=== PATIENT | male | born 1940 | race Caucasian/White ===

== ENCOUNTER 2017-09-22 12:31 | Inpatient (IN) ==
[2017-09-22] MEDS ORDERED: DEXTROSE 50% 25 GM/50 ML VIAL IV PRN (12:40)
[2017-09-22] MEDS ORDERED: ACETAMINOPHEN 325 MG TABLET PO PRN (12:40)
[2017-09-22] MEDS ORDERED: GLUCAGON 1 MG VIAL IM PRN (12:40)
[2017-09-22 14:08] LABS: ABG Base Excess -1.9 MMOL/L (-2.5-2.5); ABG HCO3 21.6 MMOL/L (20-26); ABG Oxygen Saturation 96.6 % (95-100); ABG PCO2 32.6 MM HG (35-48); ABG PH 7.439 (7.35-7.45); ABG TCO2 22.6 MMOL/L (23-27); Allen Test Positive; Pt O2 Delivery Device Room Air
[2017-09-22] MEDS: ALBUTEROL/IPRATROPIUM 3 ML NEB RESP TX SCH ×2 (14:09→19:34)
[2017-09-22 14:13] LABS: Basophils % 0.3 % (0.0-0.8); Eosinophils % 0.4 % (0.00-10.9); Hematocrit 34.4 VOL% (42.0-52.0); Hemoglobin 11.6 GM/DL (14.0-18.0); Immature Granulocytes % 0.3 %; Immature Granulocytes Absolute 0.02 #; Lymphocytes # 1.6 10*3/uL (1.4-4.0); Lymphocytes % 22.1 % (21.2-54.2); Mean Corpuscular HGB Conc 33.7 GM/DL (32-36); Mean Corpuscular Hemoglobin 30 PG (27-34); Mean Corpuscular Volume 87.8 FL (87-102); Monocytes # 0.7 10*3/uL (0.11-0.8); Monocytes % 8.8 % (1.7-12.7); Neutrophils # 5.1 10*3/uL (1.4-7.4); Neutrophils % 68.1 % (38.7-73.9); Platelet Count 166 T/CUMM (130-400); Red Blood Count 3.92 MC/CUMM (3.8-5.5); Red Cell Distribution Width 14.1 % (9.3-17.3); White Blood Count 7.4 T/CUMM (4-12)
[2017-09-22] MEDS: SODIUM CHLORIDE 0.9% 1,000 ML IV SCH (14:25)
[2017-09-22] MEDS: DIGOXIN 0.5 MG/2 ML AMP IV SCH ×2 (14:36→18:48)
[2017-09-22 14:48] LABS: Calcium 9.2 MG/DL (8.5-10.1); Osmolality,Calculated 278.5 MOS/KG (273-304); Potassium 4.2 MMOL/L (3.5-5.1)
[2017-09-22] MEDS: INSULIN REGULAR 100 UNIT/ML SUBCUT SCH ×2 (17:52→20:20)
[2017-09-22] MEDS: DABIGATRAN 150 MG CAPSULE PO SCH (20:20)
[2017-09-22] MEDS: TAMSULOSIN 0.4 MG CAPSULE PO SCH (20:21)
[2017-09-23] MEDS: ALBUTEROL/IPRATROPIUM 3 ML NEB RESP TX SCH ×4 (00:07→20:13)
[2017-09-23] MEDS: DIGOXIN 0.5 MG/2 ML AMP IV SCH ×2 (01:05→06:47)
[2017-09-23 01:25] LABS: Apearance,Urine CLEAR (Clear); Bilirubin,Urine Negative (Negative); Blood, Urine Negative (Negative); Glucose,Urine (UA) Negative (Negative); Ketones,Urine 5 mg/dL (Negative); Nitrite,Urine Negative (Negative); Protein,Urine Negative; RBC,Urine 1 /HPF (0-4); Urine Color Straw (Yellow); Urine Specific Gravity 1.004 (1.001-1.035); Urine Urobilinogen < 2.0 EU/DL (0.2-1.0)
[2017-09-23 05:43] LABS: Basophils % 0.3 % (0.0-0.8); Eosinophils % 0.5 % (0.00-10.9); Hematocrit 34.8 VOL% (42.0-52.0); Hemoglobin 11.3 GM/DL (14.0-18.0); Immature Granulocytes % 0.3 %; Immature Granulocytes Absolute 0.02 #; Lymphocytes # 1.7 10*3/uL (1.4-4.0); Lymphocytes % 27.8 % (21.2-54.2); Mean Corpuscular HGB Conc 32.5 GM/DL (32-36); Mean Corpuscular Hemoglobin 30 PG (27-34); Mean Corpuscular Volume 90.9 FL (87-102); Mean Platelet Volume 10.8 FL (9.6-12.0); Monocytes # 0.6 10*3/uL (0.11-0.8); Monocytes % 9.4 % (1.7-12.7); Neutrophils # 3.8 10*3/uL (1.4-7.4); Neutrophils % 61.7 % (38.7-73.9); Platelet Count 148 T/CUMM (130-400); Red Blood Count 3.83 MC/CUMM (3.8-5.5); Red Cell Distribution Width 13.9 % (9.3-17.3); White Blood Count 6.2 T/CUMM (4-12)
[2017-09-23 06:03] LABS: Calcium 8.7 MG/DL (8.5-10.1); Osmolality,Calculated 281.1 MOS/KG (273-304); Potassium 4.3 MMOL/L (3.5-5.1)
[2017-09-23] MEDS: SODIUM CHLORIDE 0.9% 1,000 ML IV SCH (06:12)
[2017-09-23] MEDS: INSULIN REGULAR 100 UNIT/ML SUBCUT SCH ×4 (08:39→20:05)
[2017-09-23] MEDS: PANTOPRAZOLE 40 MG TABLET PO SCH (08:43)
[2017-09-23] MEDS: SERTRALINE 50 MG TABLET PO SCH (08:43)
[2017-09-23] MEDS: DABIGATRAN 150 MG CAPSULE PO SCH ×2 (08:43→20:55)
[2017-09-23] MEDS: ALUMINUM/MAGNES/SIMETH MAX STR 30 ML UDCUP PO PRN (18:04)
[2017-09-23] MEDS: TAMSULOSIN 0.4 MG CAPSULE PO SCH (20:55)
[2017-09-23] MEDS: clonazePAM 0.5 MG TABLET PO PRN (20:59)
[2017-09-24] MEDS: ALBUTEROL/IPRATROPIUM 3 ML NEB RESP TX SCH ×4 (01:52→20:05)
[2017-09-24] MEDS: SODIUM CHLORIDE 0.9% 1,000 ML IV SCH (03:40)
[2017-09-24 03:55] LABS: Basophils % 0.1 % (0.0-0.8); Eosinophils % 0.4 % (0.00-10.9); Hematocrit 35.8 VOL% (42.0-52.0); Hemoglobin 11.8 GM/DL (14.0-18.0); Immature Granulocytes % 0.1 %; Immature Granulocytes Absolute 0.01 #; Lymphocytes % 25.5 % (21.2-54.2); Mean Corpuscular Hemoglobin 29 PG (27-34); Mean Corpuscular Volume 88.2 FL (87-102); Mean Platelet Volume 10.4 FL (9.6-12.0); Monocytes # 0.7 10*3/uL (0.11-0.8); Monocytes % 8.9 % (1.7-12.7); Platelet Count 153 T/CUMM (130-400); Red Blood Count 4.06 MC/CUMM (3.8-5.5); Red Cell Distribution Width 14.1 % (9.3-17.3); White Blood Count 7.7 T/CUMM (4-12)
[2017-09-24 04:08] LABS: Apearance,Urine CLEAR (Clear); Bilirubin,Urine Negative (Negative); Blood, Urine Small mg/dL (Negative); Glucose,Urine (UA) Negative (Negative); Ketones,Urine 20 mg/dL (Negative); Mucus,Urine Occasional /LPF (Occasional); Nitrite,Urine Negative (Negative); Protein,Urine Negative; RBC,Urine 2 /HPF (0-4); Squamous Epithelial Cell,Urine Occasional /HPF (0-10); Urine Color Straw (Yellow); Urine Specific Gravity 1.009 (1.001-1.035); Urine Urobilinogen < 2.0 EU/DL (0.2-1.0); WBC,Urine <1 /HPF (0-6)
[2017-09-24 04:20] LABS: Calcium 8.7 MG/DL (8.5-10.1); Osmolality,Calculated 280.1 MOS/KG (273-304); Potassium 3.9 MMOL/L (3.5-5.1)
[2017-09-24] MEDS: INSULIN REGULAR 100 UNIT/ML SUBCUT SCH ×4 (07:50→20:13)
[2017-09-24] MEDS: SERTRALINE 50 MG TABLET PO SCH (08:34)
[2017-09-24] MEDS: PANTOPRAZOLE 40 MG TABLET PO SCH (08:34)
[2017-09-24] MEDS ORDERED: LIDOCAINE 100 MG/5 ML SYRINGE ONE (09:00)
[2017-09-24] MEDS ORDERED: ETOMIDATE 20 MG/10 ML VIAL IV ONE (09:00)
[2017-09-24] MEDS ORDERED: PROPOFOL 200 MG/20 ML VIAL IV ONE (09:00)
[2017-09-24] MEDS: DABIGATRAN 150 MG CAPSULE PO SCH ×2 (09:09→20:13)
[2017-09-24] MEDS: ALUMINUM/MAGNES/SIMETH MAX STR 30 ML UDCUP PO PRN (17:45)
[2017-09-24] MEDS: clonazePAM 0.5 MG TABLET PO PRN (20:12)
[2017-09-24] MEDS: TAMSULOSIN 0.4 MG CAPSULE PO SCH (20:13)
[2017-09-25] MEDS: ALUMINUM/MAGNES/SIMETH MAX STR 30 ML UDCUP PO PRN ×2 (00:15→11:14)
[2017-09-25] MEDS: ALBUTEROL/IPRATROPIUM 3 ML NEB RESP TX SCH ×4 (00:54→19:09)
[2017-09-25] MEDS ORDERED: ALUMINUM/MAGNES/SIMETH MAX STR 30 ML UDCUP PO ONE (01:23)
[2017-09-25] MEDS: SODIUM CHLORIDE 0.9% 1,000 ML IV SCH ×2 (04:15→17:08)
[2017-09-25] MEDS ORDERED: DILTIAZEM 100 MG VIAL.ADD IV ONE (04:41)
[2017-09-25] MEDS ORDERED: SODIUM CHLORIDE 0.9% 100 ML IV ONE (04:42)
[2017-09-25] MEDS: ONDANSETRON 4 MG/2 ML VIAL IV PRN ×2 (05:01→11:26)
[2017-09-25] MEDS: DILTIAZEM INJ 100 MG in SODIUM CHLORIDE 0.9% 100 ML IV SCH (05:01)
[2017-09-25 05:32] LABS: Basophils % 0.1 % (0.0-0.8); Eosinophils % 0.3 % (0.00-10.9); Hemoglobin 12.9 GM/DL (14.0-18.0); Immature Granulocytes % 0.6 %; Immature Granulocytes Absolute 0.05 #; Lymphocytes # 1.1 10*3/uL (1.4-4.0); Lymphocytes % 12.5 % (21.2-54.2); Mean Corpuscular HGB Conc 32.3 GM/DL (32-36); Mean Corpuscular Hemoglobin 29 PG (27-34); Mean Corpuscular Volume 90.7 FL (87-102); Mean Platelet Volume 11.5 FL (9.6-12.0); Monocytes # 0.5 10*3/uL (0.11-0.8); Monocytes % 5.9 % (1.7-12.7); Neutrophils # 7.1 10*3/uL (1.4-7.4); Neutrophils % 80.6 % (38.7-73.9); Platelet Count 161 T/CUMM (130-400); Red Blood Count 4.41 MC/CUMM (3.8-5.5); Red Cell Distribution Width 14.1 % (9.3-17.3); White Blood Count 8.8 T/CUMM (4-12)
[2017-09-25 06:12] LABS: Hypochromasia 1+; Lymphocytes 8 % (20-55); Ovalocytes Slight; Platelet Estimate Normal; Segmented Neutrophils 84 % (50-85); Total Cells Counted 100
[2017-09-25 06:29] LABS: Calcium 9.4 MG/DL (8.5-10.1)
[2017-09-25 06:34] LABS: Osmolality,Calculated 278.5 MOS/KG (273-304)
[2017-09-25] MEDS: INSULIN REGULAR 100 UNIT/ML SUBCUT SCH ×4 (09:59→20:51)
[2017-09-25] MEDS: SERTRALINE 50 MG TABLET PO SCH (11:14)
[2017-09-25] MEDS: PANTOPRAZOLE 40 MG TABLET PO SCH (11:14)
[2017-09-25] MEDS: DABIGATRAN 150 MG CAPSULE PO SCH ×2 (11:14→20:50)
[2017-09-25] MEDS: ASCORBIC ACID 500 MG TABLET PO SCH ×2 (12:54→20:50)
[2017-09-25] MEDS: DILTIAZEM CD 120 MG CAPSULE PO SCH (12:54)
[2017-09-25] MEDS ORDERED: ERYTHROMYCIN INJ 500 MG in SODIUM CHLORIDE 0.9% 100 ML IV SCH (14:00)
[2017-09-25] MEDS: ERYTHROMYCIN BASE 250 MG TABLET PO SCH ×2 (14:53→20:50)
[2017-09-25] MEDS: TAMSULOSIN 0.4 MG CAPSULE PO SCH (20:50)
[2017-09-25] MEDS: ZALEPLON 5 MG CAPSULE PO PRN (20:50)
[2017-09-26] MEDS: ALBUTEROL/IPRATROPIUM 3 ML NEB RESP TX SCH ×4 (00:17→19:32)
[2017-09-26] MEDS: ALUMINUM/MAGNES/SIMETH MAX STR 30 ML UDCUP PO PRN ×2 (00:42→18:40)
[2017-09-26] MEDS: ONDANSETRON 4 MG/2 ML VIAL IV PRN ×3 (01:04→20:56)
[2017-09-26] MEDS: ZALEPLON 5 MG CAPSULE PO PRN ×2 (01:07→20:54)
[2017-09-26] MEDS: ERYTHROMYCIN BASE 250 MG TABLET PO SCH ×4 (03:47→20:54)
[2017-09-26] MEDS: SODIUM CHLORIDE 0.9% 1,000 ML IV SCH ×2 (04:23→16:43)
[2017-09-26 05:02] LABS: Basophils % 0.3 % (0.0-0.8); Eosinophils % 0.1 % (0.00-10.9); Hematocrit 36.3 VOL% (42.0-52.0); Hemoglobin 11.6 GM/DL (14.0-18.0); Immature Granulocytes % 0.5 %; Immature Granulocytes Absolute 0.05 #; Lymphocytes # 0.7 10*3/uL (1.4-4.0); Lymphocytes % 7.4 % (21.2-54.2); Mean Corpuscular Hemoglobin 30 PG (27-34); Mean Corpuscular Volume 92.4 FL (87-102); Mean Platelet Volume 11.1 FL (9.6-12.0); Monocytes # 0.6 10*3/uL (0.11-0.8); Monocytes % 5.9 % (1.7-12.7); Neutrophils # 7.9 10*3/uL (1.4-7.4); Neutrophils % 85.8 % (38.7-73.9); Platelet Count 160 T/CUMM (130-400); Red Blood Count 3.93 MC/CUMM (3.8-5.5); Red Cell Distribution Width 14.2 % (9.3-17.3); White Blood Count 9.3 T/CUMM (4-12)
[2017-09-26 05:25] LABS: Calcium 8.7 MG/DL (8.5-10.1); Osmolality,Calculated 282.3 MOS/KG (273-304); Potassium 4.1 MMOL/L (3.5-5.1)
[2017-09-26 05:28] LABS: Band Neutrophils 4 % (0-10); Lymphocytes 8 % (20-55); Segmented Neutrophils 82 % (50-85); Total Cells Counted 100
[2017-09-26 05:29] LABS: Anisocytosis Slight; Macrocytosis Slight; Platelet Estimate Normal
[2017-09-26] MEDS: INSULIN REGULAR 100 UNIT/ML SUBCUT SCH ×4 (08:14→20:57)
[2017-09-26] MEDS: ASCORBIC ACID 500 MG TABLET PO SCH ×2 (09:49→20:55)
[2017-09-26] MEDS: PANTOPRAZOLE 40 MG TABLET PO SCH (09:49)
[2017-09-26] MEDS: SERTRALINE 50 MG TABLET PO SCH (09:49)
[2017-09-26] MEDS: DABIGATRAN 150 MG CAPSULE PO SCH ×2 (09:49→20:55)
[2017-09-26] MEDS: DILTIAZEM CD 120 MG CAPSULE PO SCH (09:49)
[2017-09-26] MEDS: DILTIAZEM INJ 100 MG in SODIUM CHLORIDE 0.9% 100 ML IV SCH ×2 (10:31→12:38)
[2017-09-26] MEDS: HYOSCYAMINE 0.5 MG/1 ML AMP SUBCUT PRN ×2 (11:50→20:56)
[2017-09-26] MEDS: TAMSULOSIN 0.4 MG CAPSULE PO SCH (20:55)
[2017-09-27] MEDS: ALBUTEROL/IPRATROPIUM 3 ML NEB RESP TX SCH ×4 (00:42→19:20)
[2017-09-27] MEDS: ERYTHROMYCIN BASE 250 MG TABLET PO SCH ×4 (03:23→21:19)
[2017-09-27 05:33] LABS: Basophils % 0.2 % (0.0-0.8); Eosinophils % 0.3 % (0.00-10.9); Hematocrit 34.7 VOL% (42.0-52.0); Hemoglobin 11.1 GM/DL (14.0-18.0); Immature Granulocytes % 0.4 %; Immature Granulocytes Absolute 0.04 #; Lymphocytes # 1.1 10*3/uL (1.4-4.0); Lymphocytes % 11.7 % (21.2-54.2); Mean Corpuscular Hemoglobin 29 PG (27-34); Mean Corpuscular Volume 91.8 FL (87-102); Mean Platelet Volume 10.1 FL (9.6-12.0); Monocytes # 0.6 10*3/uL (0.11-0.8); Monocytes % 6.5 % (1.7-12.7); Neutrophils # 7.3 10*3/uL (1.4-7.4); Neutrophils % 80.9 % (38.7-73.9); Platelet Count 159 T/CUMM (130-400); Red Blood Count 3.78 MC/CUMM (3.8-5.5); Red Cell Distribution Width 14.4 % (9.3-17.3)
[2017-09-27 06:07] LABS: Calcium 8.2 MG/DL (8.5-10.1); Osmolality,Calculated 276.4 MOS/KG (273-304); Potassium 3.5 MMOL/L (3.5-5.1)
[2017-09-27] MEDS: DILTIAZEM INJ 100 MG in SODIUM CHLORIDE 0.9% 100 ML IV SCH (06:28)
[2017-09-27] MEDS: SODIUM CHLORIDE 0.9% 1,000 ML IV SCH ×2 (06:29→09:52)
[2017-09-27] MEDS: INSULIN REGULAR 100 UNIT/ML SUBCUT SCH ×4 (08:20→21:19)
[2017-09-27] MEDS: PANTOPRAZOLE 40 MG TABLET PO SCH (08:21)
[2017-09-27] MEDS: SERTRALINE 50 MG TABLET PO SCH (08:21)
[2017-09-27] MEDS: ASCORBIC ACID 500 MG TABLET PO SCH ×2 (08:21→21:19)
[2017-09-27] MEDS: DABIGATRAN 150 MG CAPSULE PO SCH ×2 (08:22→21:19)
[2017-09-27] MEDS: CARVEDILOL 3.125 MG TABLET PO SCH ×2 (10:23→21:19)
[2017-09-27] MEDS: HYOSCYAMINE 0.5 MG/1 ML AMP SUBCUT PRN (10:24)
[2017-09-27] MEDS: TAMSULOSIN 0.4 MG CAPSULE PO SCH (21:19)
[2017-09-27] MEDS: ZALEPLON 5 MG CAPSULE PO PRN (21:20)
[2017-09-28] MEDS: ALBUTEROL/IPRATROPIUM 3 ML NEB RESP TX SCH ×4 (00:25→20:06)
[2017-09-28] MEDS: HYOSCYAMINE 0.5 MG/1 ML AMP SUBCUT PRN ×2 (01:46→09:32)
[2017-09-28] MEDS: ERYTHROMYCIN BASE 250 MG TABLET PO SCH ×4 (01:47→21:41)
[2017-09-28] MEDS: DILTIAZEM INJ 100 MG in SODIUM CHLORIDE 0.9% 100 ML IV SCH (07:19)
[2017-09-28] MEDS: INSULIN REGULAR 100 UNIT/ML SUBCUT SCH ×4 (08:05→22:07)
[2017-09-28] MEDS: ASCORBIC ACID 500 MG TABLET PO SCH ×2 (09:27→21:41)
[2017-09-28] MEDS: PANTOPRAZOLE 40 MG TABLET PO SCH (09:27)
[2017-09-28] MEDS: SERTRALINE 50 MG TABLET PO SCH (09:27)
[2017-09-28] MEDS: DABIGATRAN 150 MG CAPSULE PO SCH ×2 (09:28→21:41)
[2017-09-28] MEDS: CARVEDILOL 3.125 MG TABLET PO SCH ×2 (09:28→21:41)
[2017-09-28] MEDS ORDERED: HYOSCYAMINE 0.125 MG TABLET PO PRN (12:35)
[2017-09-28] MEDS ORDERED: ZINC OXIDE PASTE 113 GM TUBE TOP PRN (15:54)
[2017-09-28] MEDS: TAMSULOSIN 0.4 MG CAPSULE PO SCH (21:41)
[2017-09-29] MEDS: ALBUTEROL/IPRATROPIUM 3 ML NEB RESP TX SCH ×5 (00:35→19:22)
[2017-09-29] MEDS: ERYTHROMYCIN BASE 250 MG TABLET PO SCH ×4 (03:51→20:21)
[2017-09-29 04:23] LABS: Basophils % 0.1 % (0.0-0.8); Eosinophils # 0.1 10*3/uL (0.0-0.87); Eosinophils % 0.6 % (0.00-10.9); Hematocrit 32.8 VOL% (42.0-52.0); Immature Granulocytes % 0.5 %; Immature Granulocytes Absolute 0.04 #; Lymphocytes # 1.6 10*3/uL (1.4-4.0); Lymphocytes % 20.3 % (21.2-54.2); Mean Corpuscular HGB Conc 33.5 GM/DL (32-36); Mean Corpuscular Hemoglobin 30 PG (27-34); Mean Corpuscular Volume 89.4 FL (87-102); Mean Platelet Volume 10.5 FL (9.6-12.0); Monocytes # 0.8 10*3/uL (0.11-0.8); Monocytes % 10.3 % (1.7-12.7); Neutrophils # 5.4 10*3/uL (1.4-7.4); Neutrophils % 68.2 % (38.7-73.9); Platelet Count 161 T/CUMM (130-400); Red Blood Count 3.67 MC/CUMM (3.8-5.5); Red Cell Distribution Width 14.1 % (9.3-17.3); White Blood Count 7.9 T/CUMM (4-12)
[2017-09-29 04:53] LABS: Eosinophils 1 % (0-10); Lymphocytes 17 % (20-55); Segmented Neutrophils 77 % (50-85); Total Cells Counted 100
[2017-09-29 04:54] LABS: Platelet Estimate Normal
[2017-09-29 04:55] LABS: Giant Platelets Few
[2017-09-29 04:56] LABS: Ovalocytes Few
[2017-09-29 05:06] LABS: Calcium 8.5 MG/DL (8.5-10.1); Osmolality,Calculated 281.4 MOS/KG (273-304); Potassium 3.4 MMOL/L (3.5-5.1)
[2017-09-29] MEDS: DILTIAZEM INJ 100 MG in SODIUM CHLORIDE 0.9% 100 ML IV SCH (05:36)
[2017-09-29] MEDS ORDERED: POTASSIUM CHLORIDE 20 MEQ TABLET PO ONE (06:52)
[2017-09-29] MEDS ORDERED: LISINOPRIL 2.5 MG TABLET PO SCH (09:00)
[2017-09-29] MEDS: DABIGATRAN 150 MG CAPSULE PO SCH ×2 (09:43→20:21)
[2017-09-29] MEDS: CARVEDILOL 3.125 MG TABLET PO SCH ×2 (09:43→20:21)
[2017-09-29] MEDS: SERTRALINE 50 MG TABLET PO SCH (09:43)
[2017-09-29] MEDS: ASCORBIC ACID 500 MG TABLET PO SCH ×2 (09:43→20:21)
[2017-09-29] MEDS: PANTOPRAZOLE 40 MG TABLET PO SCH (09:43)
[2017-09-29] MEDS: INSULIN REGULAR 100 UNIT/ML SUBCUT SCH ×4 (09:44→20:21)
[2017-09-29] MEDS ORDERED: TUBERCULIN SKIN TEST 0.1 ML SYRINGE INTRADERM ONE (15:03)
[2017-09-29] MEDS: clonazePAM 0.5 MG TABLET PO PRN (20:21)
[2017-09-29] MEDS: TAMSULOSIN 0.4 MG CAPSULE PO SCH (20:21)
[2017-09-30] MEDS: ALBUTEROL/IPRATROPIUM 3 ML NEB RESP TX SCH ×2 (00:36→07:28)
[2017-09-30] MEDS: ERYTHROMYCIN BASE 250 MG TABLET PO SCH ×2 (03:29→08:43)
[2017-09-30] MEDS: DILTIAZEM INJ 100 MG in SODIUM CHLORIDE 0.9% 100 ML IV SCH (04:50)
[2017-09-30] MEDS: INSULIN REGULAR 100 UNIT/ML SUBCUT SCH (07:49)
[2017-09-30] MEDS: SERTRALINE 50 MG TABLET PO SCH (08:43)
[2017-09-30] MEDS: CARVEDILOL 3.125 MG TABLET PO SCH (08:43)
[2017-09-30] MEDS: ASCORBIC ACID 500 MG TABLET PO SCH (08:43)
[2017-09-30] MEDS: DABIGATRAN 150 MG CAPSULE PO SCH (08:43)
[2017-09-30] MEDS: PANTOPRAZOLE 40 MG TABLET PO SCH (08:43)
[2017-09-30] MEDS ORDERED: LISINOPRIL 2.5 MG TABLET PO SCH (09:00)
[2017-09-30 11:15] VITALS: BP 115/68
== END 2017-09-30 10:58 | disposition swing bed (61) | DRG 74 ==
LOC: N.ICU 13:13 → N.TELEN 09-24 15:09
PROVIDERS: ADMIT Internal Medicine Cardiovascular Disease; ATTEND Internal Medicine Cardiovascular Disease

== ENCOUNTER 2017-11-11 05:46 | Inpatient (IN) ==
[2017-11-02 13:06] LABS: Basophils % 0.1 % (0.0-0.8); Eosinophils % 0.4 % (0.00-10.9); Hematocrit 35.9 VOL% (42.0-52.0); Hemoglobin 11.5 GM/DL (14.0-18.0); Immature Granulocytes % 0.3 %; Immature Granulocytes Absolute 0.02 #; Lymphocytes # 1.1 10*3/uL (1.4-4.0); Lymphocytes % 16.5 % (21.2-54.2); Mean Corpuscular Hemoglobin 30 PG (27-34); Mean Corpuscular Volume 92.1 FL (87-102); Mean Platelet Volume 10.2 FL (9.6-12.0); Monocytes # 0.5 10*3/uL (0.11-0.8); Monocytes % 7.7 % (1.7-12.7); Neutrophils # 5.2 10*3/uL (1.4-7.4); Platelet Count 131 T/CUMM (130-400); Red Cell Distribution Width 15.4 % (9.3-17.3); White Blood Count 6.9 T/CUMM (4-12)
[2017-11-02 13:41] LABS: Calcium 8.9 MG/DL (8.5-10.1); Osmolality,Calculated 282.5 MOS/KG (273-304); Potassium 4.1 MMOL/L (3.5-5.1)
[2017-11-11] MEDS ORDERED: FAMOTIDINE 20 MG TABLET PO ONE (06:00)
[2017-11-11] MEDS ORDERED: TISSUE ADHESIVE 1 EACH APPLICATOR TOP ONE ×2 (06:07→08:49)
[2017-11-11] MEDS ORDERED: LIDOCAINE 1%/EPI INJ 20 ML VIAL ONE (06:07)
[2017-11-11] MEDS ORDERED: BUPIVACAINE MPF 0.25% /EPI 30 ML VIAL ONE (06:07)
[2017-11-11] MEDS: LACTATED RINGERS 1,000 ML IV SCH ×2 (06:30→08:31)
[2017-11-11] MEDS ORDERED: FAMOTIDINE 20 MG TABLET ONE (06:47)
[2017-11-11] MEDS ORDERED: ceFAZolin 1,000 MG VIAL ONE (06:47)
[2017-11-11] MEDS ORDERED: MORPHINE 4 MG/1 ML VIAL IV PRN (08:48)
[2017-11-11] MEDS ORDERED: ACETAMINOPHEN 325 MG TABLET PO PRN (08:48)
[2017-11-11] MEDS ORDERED: ONDANSETRON 4 MG/2 ML VIAL IV PRN ×2 (08:48→09:32)
[2017-11-11] MEDS ORDERED: PANTOPRAZOLE 40 MG TABLET PO SCH (09:00)
[2017-11-11] MEDS ORDERED: PROPOFOL 200 MG/20 ML VIAL IV ONE (09:07)
[2017-11-11] MEDS ORDERED: PHENYLEPHRINE 1 MG/10 ML SYRINGE IV ONE (09:08)
[2017-11-11] MEDS ORDERED: ACETAMINOPHEN 1,000 MG/100 ML VIAL IV ONE (09:08)
[2017-11-11] MEDS ORDERED: SUCCINYLCHOLINE 200 MG/10 ML VIAL ONE (09:08)
[2017-11-11] MEDS ORDERED: LACTATED RINGERS 1,000 ML IV ONE (09:08)
[2017-11-11] MEDS ORDERED: SEVOFLURANE 1 UNIT/15 MINUTE INH ONE (09:08)
[2017-11-11] MEDS ORDERED: fentaNYL 100 MCG/2 ML VIAL ONE ×2 (09:08→09:11)
[2017-11-11] MEDS ORDERED: ROCURONIUM 100 MG/10 ML VIAL IV ONE (09:08)
[2017-11-11] MEDS: MORPHINE 10 MG/1 ML VIAL IV PRN ×2 (09:30→09:35)
[2017-11-11] MEDS ORDERED: ONDANSETRON 4 MG/2 ML VIAL ONE (09:33)
[2017-11-11] MEDS ORDERED: MORPHINE 10 MG/1 ML VIAL ONE (09:33)
[2017-11-11] MEDS: ALUMINUM/MAGNES/SIMETH MAX STR 30 ML UDCUP PO PRN ×2 (13:59→20:32)
[2017-11-11] MEDS ORDERED: ALUMINUM/MAGNES/SIMETH MAX STR 30 ML UDCUP PO PRN (16:38)
[2017-11-11] MEDS: MIDODRINE 5 MG TABLET PO SCH ×2 (17:00→20:32)
[2017-11-11] MEDS ORDERED: MIDODRINE 5 MG TABLET PO ONE (17:00)
[2017-11-11] MEDS: ASCORBIC ACID 500 MG TABLET PO SCH (20:32)
[2017-11-11] MEDS: DABIGATRAN 150 MG CAPSULE PO SCH (20:32)
[2017-11-11] MEDS: MAGNESIUM OXIDE 400 MG TABLET PO SCH (20:32)
[2017-11-11] MEDS ORDERED: clonazePAM 0.5 MG TABLET PO SCH (21:00)
[2017-11-12 05:17] LABS: Basophils % 0.5 % (0.0-0.8); Eosinophils # 0.1 10*3/uL (0.0-0.87); Eosinophils % 1.7 % (0.00-10.9); Hematocrit 34.5 VOL% (42.0-52.0); Hemoglobin 10.5 GM/DL (14.0-18.0); Immature Granulocytes % 0.2 %; Immature Granulocytes Absolute 0.01 #; Lymphocytes # 1.6 10*3/uL (1.4-4.0); Mean Corpuscular HGB Conc 30.4 GM/DL (32-36); Mean Corpuscular Hemoglobin 29 PG (27-34); Mean Corpuscular Volume 96.4 FL (87-102); Monocytes # 0.6 10*3/uL (0.11-0.8); Monocytes % 9.8 % (1.7-12.7); Neutrophils # 3.5 10*3/uL (1.4-7.4); Neutrophils % 59.8 % (38.7-73.9); Platelet Count 111 T/CUMM (130-400); Red Blood Count 3.58 MC/CUMM (3.8-5.5); Red Cell Distribution Width 15.9 % (9.3-17.3); White Blood Count 5.8 T/CUMM (4-12)
[2017-11-12 05:35] LABS: Calcium 8.6 MG/DL (8.5-10.1); Potassium 4.4 MMOL/L (3.5-5.1)
[2017-11-12] MEDS: LACTATED RINGERS 1,000 ML IV SCH (06:15)
[2017-11-12] MEDS: ASCORBIC ACID 500 MG TABLET PO SCH (08:51)
[2017-11-12] MEDS: MAGNESIUM OXIDE 400 MG TABLET PO SCH (08:51)
[2017-11-12] MEDS: MIDODRINE 5 MG TABLET PO SCH (08:51)
[2017-11-12] MEDS: DABIGATRAN 150 MG CAPSULE PO SCH (08:51)
[2017-11-12] MEDS ORDERED: SERTRALINE 50 MG TABLET PO SCH (09:00)
[2017-11-12] MEDS ORDERED: PANTOPRAZOLE 40 MG TABLET PO SCH (09:00)
[2017-11-12] MEDS ORDERED: TAMSULOSIN 0.4 MG CAPSULE PO SCH (09:00)
[2017-11-12 11:56] VITALS: BP 100/55
== END 2017-11-12 13:51 | disposition home or self-care (01) | DRG 41 ==
LOC: N.OR 05:46 → N.SDSINP 05:49 → N.OR 08:23 → N.3E 08:48
PROVIDERS: ADMIT Surgery; ATTEND Surgery